=== PATIENT | female | born 1985 | race Caucasian/White ===

== ENCOUNTER 2020-05-02 13:16 | Inpatient (IN) ==
[2020-05-02] MEDS ORDERED: Metoclopramide 10 MG/2 ML VIAL IVP PRN (13:21)
[2020-05-02] MEDS ORDERED: Famotidine 20 MG/2 ML VIAL IVP PRN (13:21)
[2020-05-02] MEDS ORDERED: Ondansetron 4 MG/2 ML VIAL IVP PRN (13:21)
[2020-05-02] MEDS ORDERED: Lidocaine 1% 20 ML MDV INFILT PRN (13:21)
[2020-05-02] MEDS ORDERED: Naloxone 0.4 MG/ML INJ IVP PRN (13:21)
[2020-05-02] MEDS ORDERED: *HR* FentaNYL (PF) 100 MCG/2 ML VIAL IVP PRN (13:21)
[2020-05-02] MEDS ORDERED: Oxytocin 20 units/ LR 1000 mL 20 UNIT/1,000 ML BAG IVC SCH (13:30)
[2020-05-02] MEDS ORDERED: Penicillin G Potassium 5,000,000 UNIT in 0.9 % Sodium Chloride Mini Bag 100 ML IVPB ONE (13:40)
[2020-05-02] MEDS ORDERED: *HR* FentaNYL (PF) 100 MCG/2 ML VIAL EP ONE (14:38)
[2020-05-02] MEDS ORDERED: EPHEDrine 50 MG/ML VIAL IVP PRN (14:38)
[2020-05-02] MEDS ORDERED: Bupivacaine-MPF 0.25% 10 ML VIAL EP ONE (14:38)
[2020-05-02] MEDS: Ringers Solution, Lactated 1,000 ML IVC SCH (14:39)
[2020-05-02] MEDS ORDERED: Epidural Premix (fent/bupiv) 110 ML EP SCH (14:45)
[2020-05-02 15:39] LABS: Basophils % 0.2 %; Eosinophils % 0.3 %; Hematocrit 34.4 % (35.3-44.9); Hemoglobin 11.9 g/dL (11.5-15.4); Immature Granulocytes % 0.3 % (0-4); Lymphocytes # 1.3 K/mcL (0.6-4.6); Lymphocytes % 13.4 %; Mean Corpuscular HGB Conc 34.6 g/dL (31.6-35.5); Mean Corpuscular Hemoglobin 33.7 pg (28.0-33.3); Mean Corpuscular Volume 97.5 fL (83.0-100.0); Monocytes # 0.4 K/mcL (0.0-1.3); Monocytes % 4.5 %; Neutrophils # 7.9 K/mcL (1.6-8.9); Platelet Count 149 K/mcL (140-400); Red Blood Count 3.53 M/mcL (3.82-4.97); Red Cell Distribution Width 13.2 % (11.5-14.5); Segmented Neutrophils % 81.3 %; White Blood Count 9.7 K/mcL (4.3-11.1)
[2020-05-02 15:54] LABS: Amphetamine Screen,Urine Negative ng/mL (Cutoff=1000); Barbiturate Screen,Urine Negative ng/mL (Cutoff=200); Benzodiazepines Screen,Urine Negative ng/mL (Cutoff=200); Cannabinoid Screen,Urine Negative ng/mL (Cutoff = 50); Cocaine Screen,Urine Negative ng/mL (Cutoff= 300); Opiate Screen,Urine Negative ng/mL (Cutoff=300); Phencyclidine Screen,Urine Negative ng/mL (Cutoff=25)
[2020-05-02] MEDS: Penicillin G Potassium 2,500,000 UNIT/105 ML MLS IVPB SCH ×2 (18:35→20:35)
[2020-05-02] MEDS ORDERED: *HR* FentaNYL (PF) 100 MCG/2 ML VIAL ONE (23:55)
[2020-05-03] MEDS ORDERED: *HR* Phenylephrine 10 MG/ML VIAL ONE (00:01)
[2020-05-03] MEDS ORDERED: Acetaminophen IV 1,000 MG/100 ML INFUS..BTL ONE (00:11)
[2020-05-03] MEDS ORDERED: *HR* Morphine Sulfate/PF 10 MG/10 ML AMPUL ONE (00:14)
[2020-05-03] MEDS ORDERED: Chloroprocaine/PF 20 ML VIAL INFILT ONE (00:14)
[2020-05-03] MEDS ORDERED: Ringers Solution, Lactated 1,000 ML ONE (00:19)
[2020-05-03] MEDS ORDERED: *HR* Oxytocin 10 UNIT/ML VIAL IM ONE (00:19)
[2020-05-03] MEDS ORDERED: Ondansetron 4 MG/2 ML VIAL IVP PRN ×2 (00:31→02:59)
[2020-05-03] MEDS ORDERED: Naloxone 0.4 MG/ML INJ IVP PRN (00:31)
[2020-05-03] MEDS ORDERED: *HR* OxyCODONE Immed Rel 5 MG TABLET PO PRN (00:31)
[2020-05-03] MEDS ORDERED: *HR* FentaNYL (PF) 100 MCG/2 ML VIAL IVP PRN (00:31)
[2020-05-03] MEDS ORDERED: Rho Immune Globulin 1,500 UNIT SYRINGE IM ONE ×2 (02:59→19:49)
[2020-05-03] MEDS ORDERED: Sennosides 8.6 MG TABLET PO PRN (02:59)
[2020-05-03] MEDS ORDERED: Oxytocin 20 units/ LR 1000 mL 20 UNIT/1,000 ML BAG IVC SCH ×2 (02:59)
[2020-05-03] MEDS ORDERED: Metoclopramide 10 MG/2 ML VIAL IVP PRN (02:59)
[2020-05-03] MEDS: Ringers Solution, Lactated 1,000 ML IVC SCH (04:48)
[2020-05-03] MEDS: *HR* OxyCODONE Immed Rel 5 MG TABLET PO PRN ×4 (04:58→21:12)
[2020-05-03] MEDS: Acetaminophen 325 MG TABLET PO SCH ×3 (05:53→19:54)
[2020-05-03] MEDS: Ibuprofen 600 MG TABLET PO SCH ×3 (05:53→19:53)
[2020-05-03 08:25] LABS: Hemoglobin 11.5 g/dL (11.5-15.4); Mean Platelet Volume 11.6 fL (9.4-12.4)
[2020-05-03 08:27] LABS: Basophils % 0.2 %; Eosinophils % 0.1 %; Hematocrit 33.8 % (35.3-44.9); Immature Granulocytes % 0.4 % (0-4); Immature Platelets 8.8 % (1.1-6.1); Lymphocytes % 9.9 %; Mean Corpuscular Hemoglobin 33.3 pg (28.0-33.3); Monocytes # 0.5 K/mcL (0.0-1.3); Monocytes % 4.1 %; Nucleated Red Blood Cells 0.2 /100 WBC (0); Platelet Count 140 K/mcL (140-400); Red Blood Count 3.45 M/mcL (3.82-4.97); Red Cell Distribution Width 13.2 % (11.5-14.5); Segmented Neutrophils % 85.3 %; White Blood Count 12.6 K/mcL (4.3-11.1)
[2020-05-03] MEDS: Simethicone 80 MG TAB.CHEW PO PRN (08:30)
[2020-05-03] MEDS: Prenatal Vit/FA 1 EACH TABLET PO SCH (08:30)
[2020-05-03 08:56] LABS: Lymphocytes # 1.3 K/mcL (0.6-4.6); Neutrophils # 10.8 K/mcL (1.6-8.9)
[2020-05-03] MEDS ORDERED: NON-FORMULARY MEDICATION 1 EACH EACH (Pnv No.95/Ferrous Fum/Folic Ac [Prenatal Caplet] 1 E PO SCH (09:00)
[2020-05-04] MEDS: Acetaminophen 325 MG TABLET PO SCH ×4 (02:07→21:50)
[2020-05-04] MEDS: Simethicone 80 MG TAB.CHEW PO PRN ×2 (02:07→10:28)
[2020-05-04] MEDS: Ibuprofen 600 MG TABLET PO SCH ×5 (02:07→21:50)
[2020-05-04] MEDS: *HR* OxyCODONE Immed Rel 5 MG TABLET PO PRN ×5 (03:51→20:17)
[2020-05-04] MEDS: Prenatal Vit/FA 1 EACH TABLET PO SCH (08:16)
[2020-05-04] MEDS ORDERED: Lanolin 7 G OINT...G. TP PRN (08:22)
[2020-05-05] MEDS: *HR* OxyCODONE Immed Rel 5 MG TABLET PO PRN ×3 (00:25→12:10)
[2020-05-05] MEDS: Ibuprofen 600 MG TABLET PO SCH ×2 (04:38→12:11)
[2020-05-05 07:52] VITALS: BP 118/71
[2020-05-05] MEDS: Prenatal Vit/FA 1 EACH TABLET PO SCH (08:59)
[2020-05-05] MEDS: Simethicone 80 MG TAB.CHEW PO PRN (08:59)
[2020-05-05] MEDS: Acetaminophen 325 MG TABLET PO SCH (08:59)
[2020-05-05] MEDS ORDERED: FLU Vac QV 20-21 (6Month+)/PF 0.5 ML SYRINGE IM ONE (12:03)
== END 2020-05-05 14:16 | disposition home or self-care (01) | DRG 788 ==
LOC: 1NENULAB → 1NENUOBS 05-03 03:02
PROVIDERS: ADMIT Student in an Organized Health Care Education/Training Program; ATTEND Student in an Organized Health Care Education/Training Program